=== PATIENT | female | born 1995 | race African-American/Black ===

== ENCOUNTER 2016-12-08 20:03 | Emergency (ER) | payer OTHER ==
[~2016-12-08] VITALS: Ht 157.5 cm; Wt 50.8 kg
[2016-12-08 20:51] LABS: BASO % 1 % (0-3); EOS % 1 % (0-3); HEMATOCRIT 41.6 % (36.0-47.0); HEMOGLOBIN 14.7 g/dL (12.0-15.5); LYMPH # 2.5 x10^3/uL (1.0-4.8); LYMPH % 43 % (24-48); MEAN CORPUSCULAR HEMOGLOBIN 31 pg (25-35); MEAN CORPUSCULAR HGB CONC 35 g/dL (31-37); MEAN CORPUSCULAR VOLUME 88 fL (79-100); MONO % 6 % (0-9); NEUT % 51 % (31-73); PLATELET COUNT 207 x10^3/uL (140-400); RED BLOOD COUNT 4.73 x10^6/uL (3.50-5.40); RED CELL DISTRIBUTION WIDTH 12.6 % (11.5-14.5); WHITE BLOOD COUNT 5.9 x10^3/uL (4.0-11.0)
[2016-12-08 21:05] LABS: CALCIUM 8.9 mg/dL (8.5-10.1); CREATININE 0.9 mg/dL (0.6-1.0); GFR 94.7; POTASSIUM 3.5 mmol/L (3.5-5.1)
[2016-12-08 21:08] LABS: NEG OBC SER NEG; POS OBC SER POS
[2016-12-08 21:11] LABS: ALBUMIN/GLOBULIN RATIO 1.1 (1.0-1.7); TOTAL BILIRUBIN 0.5 mg/dL (0.2-1.0); TOTAL PROTEIN 7.8 g/dL (6.4-8.2)
[2016-12-08] MEDS ORDERED: HYDROcodone/APAP 5/325MG 1 TAB TABLET PO ONE (22:00)
[2016-12-08] MEDS ORDERED: PROCHLORPERAZINE 5 MG TABLET. PO ONE (22:00)
[2016-12-08 22:40] VITALS: BP 120/72
--- NOTE | 2016-12-08 23:29 | ED.ADGEN ---
Past Medical History Past Medical History: Hypertension, Migraines Past Surgical History: No Surgical History Alcohol Use: None Drug Use: None Adult General Chief Complaint Chief Complaint: SYNCOPE HPI HPI Patient is a 21 year old -[place] female with history of chronic migraines who presents with simple episode while outdoors at a local park. Patient reports migraine headache earlier this evening, reports feeling dizzy and lightheaded and had brief syncopal episode while sitting at a park bench. This was followed by a second syncopal episode which lasted seconds. Nose seizure activity was witnessed, patient denies incontinence or having tongue or lips. Patient denies chest pain palpitations, her cardiac symptoms prior to syncope. Denies history of prior syncope. Patient states other than her typical migraine headache, symptoms have resolved. Patient is currently on control denies possibility of . Patient denies history of drug abuse. Strong odor of marijuana as noted in the room. Review of Systems Review of Systems Review symptoms as per history of present illness. All other review of symptoms are negative. Current Medications Current Medications Current Medications Medications (Trade) Dose Ordered Sig/Emma Start Time Stop Time Status Last Admin Dose Admin Acetaminophen/ Hydrocodone Bitart (Lortab 5/325) 1 tab 1X ONCE 12/08/16 22:00 12/08/16 22:01 DC 12/08/16 21:58 1 TAB Prochlorperazine Maleate (Compazine) 10 mg 1X ONCE 12/08/16 22:00 12/08/16 22:01 DC 12/08/16 21:56 10 MG Allergies Allergies Allergies Coded Allergies Type Severity Reaction Last Updated Verified No Known Drug Allergies 05/02/14 No Physical Exam Physical Exam Constitutional: Well developed, well nourished, no acute distress, non-toxic appearance. HENT: Normocephalic, atraumatic, bilateral external ears normal, oropharynx moist, no oral exudates, nose normal. Eyes: PERRLA, EOMI. Neck: Normal range of motion, supple, no midline tenderness. Cardiovascular:Heart rate regular rhythm, no murmur. Lungs & Thorax: Bilateral breath sounds clear to auscultation. Abdomen: Bowel sounds normal, soft, no tenderness. Skin: Warm, dry. Back: No tenderness, no CVA tenderness. Extremities: No midline tenderness. Neurologic: Alert and oriented X 3, normal motor function, normal sensory function, no focal deficits noted. Psychologic: Affect normal, judgement normal, mood normal. Current Patient Data Vital Signs Vital Signs Date Time Temp Pulse Resp B/P (MAP) Pulse Ox O2 Delivery O2 Flow Rate FiO2 12/08/16 22:40 66 120/72 (88) 99 Room Air 12/08/16 20:16 98.1 14 98.1 Lab Values Laboratory Tests Test 12/08/16 19:25 12/08/16 20:44 POC Urine HCG, Qualitative Hcg negative (Negative) White Blood Count 5.9 x10^3/uL (4.0-11.0) Red Blood Count 4.73 x10^6/uL (3.50-5.40) Hemoglobin 14.7 g/dL (12.0-15.5) Hematocrit 41.6 % (36.0-47.0) Mean Corpuscular Volume 88 fL (79-100) Mean Corpuscular Hemoglobin 31 pg (25-35) Mean Corpuscular Hemoglobin Concent 35 g/dL (31-37) Red Cell Distribution Width 12.6 % (11.5-14.5) Platelet Count 207 x10^3/uL (140-400) Neutrophils (%) (Auto) 51 % (31-73) Lymphocytes (%) (Auto) 43 % (24-48) Monocytes (%) (Auto) 6 % (0-9) Eosinophils (%) (Auto) 1 % (0-3) Basophils (%) (Auto) 1 % (0-3) Neutrophils # (Auto) 3.0 x10^3uL (1.8-7.7) Lymphocytes # (Auto) 2.5 x10^3/uL (1.0-4.8) Monocytes # (Auto) 0.3 x10^3/uL (0.0-1.1) Eosinophils # (Auto) 0.0 x10^3/uL (0.0-0.7) Basophils # (Auto) 0.0 x10^3/uL (0.0-0.2) Sodium Level 138 mmol/L (136-145) Potassium Level 3.5 mmol/L (3.5-5.1) Chloride Level 101 mmol/L (98-107) Carbon Dioxide Level 30 mmol/L (21-32) Anion Gap 7 (6-14) Blood Urea Nitrogen 6 mg/dL (7-20) L Creatinine 0.9 mg/dL (0.6-1.0) Estimated GFR (Cockcroft-Gault) 94.7 BUN/Creatinine Ratio 7 (6-20) Glucose Level 108 mg/dL (70-99) H Calcium Level 8.9 mg/dL (8.5-10.1) Total Bilirubin 0.5 mg/dL (0.2-1.0) Aspartate Amino Transferase (AST) 18 U/L (15-37) Alanine Aminotransferase (ALT) 22 U/L (14-59) Alkaline Phosphatase 55 U/L (46-116) Total Protein 7.8 g/dL (6.4-8.2) Albumin 4.0 g/dL (3.4-5.0) Albumin/Globulin Ratio 1.1 (1.0-1.7) Serum Test, Qualitative Negative (NEG) Laboratory Tests 12/08/16 20:44 Laboratory Tests 12/08/16 20:44 EKG EKG [EKG: Sinus arrhythmia, rate 72, no acute ST-T wave changes.] Radiology/Procedures Radiology/Procedures [] Impressions: Migraine headache with syncopal episode Course & Med Decision Making Course & Med Decision Making Pertinent Labs and Imaging studies reviewed. (See chart for details) [Headache without focal neurologic symptoms, symptoms resolved in the ED.] Dragon Disclaimer Dragon Disclaimer This electronic medical record was generated, in whole or in part, using a voice recognition dictation system. [place] THOMAS DO December 08, 2016 23:29
--- NOTE | 2016-12-09 11:46 | EKG ---
[facility] [address] [place] [address] Test Date: 2016-12-08 Test Time: 20:10:03 Pat Name: TRICIA NDIAYE Department: Room: Gender: F Human Resources Operations Director: : 1995 Requested By: [place] THOMAS Order Number: [id number] Reading MD: Lashae Flynn Measurements Intervals [place] Rate: 72 P: 66 W[place]: 220 QRS: 82 QRSD: 78 T: 59 QT: 368 QTc: 404 Interpretive Statements SINUS ARRHYTHMIA PROLONGED WY INTERVAL ABNORMAL ECG RI6.01 No previous ECG available for comparison Electronically Signed On 12-09-2016 18:19:30 CDT by Lashae Flynn
== END 2016-12-08 22:41 | disposition home or self-care (01) ==
LOC: ER 20:03
DX: G43.909 Migraine, unspecified, not intractable, without status migrainosus (principal); R55 Syncope and collapse; I10 Essential (primary) hypertension
CPT/HCPCS: 36415; 80053; 81025; 84703; 85027; 93005; 99285; Q0164

== ENCOUNTER 2019-12-06 08:26 | Observation (INO) | payer OTHER ==
[~2019-12-06] VITALS: Ht 157.5 cm; Wt 50.3 kg
[2019-12-06] MEDS ORDERED: IV RINGERS,LACTATED 1000ML 1,000 ML IV SCH (09:00)
[2019-12-06 09:08] LABS: BILIRUBIN,URINE NEGATIVE (NEG); CLARITY,URINE CLEAR; COLOR,URINE YELLOW; NITRITE,URINE NEGATIVE (NEG); PROTEIN,URINE NEGATIVE (NEG-TRACE); UROBILINOGEN,URINE 0.2 mg/dL (0.2 mg/dL)
[2019-12-06 09:19] LABS: SQUAMOUS EPITHELIAL CELL,UR MOD /LPF
[2019-12-06 09:20] LABS: BACTERIA,URINE FEW /HPF (0-FEW); RBC,URINE 0 /HPF (0-2)
[2019-12-06 10:02] LABS: BASO % 0 % (0-3); EOS # 0.1 x10^3/uL (0.0-0.7); EOS % 1 % (0-3); HEMATOCRIT 40.8 % (36.0-47.0); HEMOGLOBIN 13.6 g/dL (12.0-15.5); LYMPH % 17 % (24-48); MEAN CORPUSCULAR HEMOGLOBIN 32 pg (25-35); MEAN CORPUSCULAR HGB CONC 33 g/dL (31-37); MEAN CORPUSCULAR VOLUME 95 fL (79-100); MONO # 0.7 x10^3/uL (0.0-1.1); MONO % 6 % (0-9); NEUT # 9.2 x10^3/uL (1.8-7.7); NEUT % 77 % (31-73); PLATELET COUNT 200 x10^3/uL (140-400); RED BLOOD COUNT 4.31 x10^6/uL (3.50-5.40); RED CELL DISTRIBUTION WIDTH 13.2 % (11.5-14.5)
[2019-12-06] MEDS ORDERED: MAGNESIUM SULFATE 4GM 100 ML IV ONE (10:30)
[2019-12-06] MEDS ORDERED: MAGNESIUM SULFATE 2GM 50 ML IV ONE (10:30)
--- NOTE | 2019-12-06 11:12 | PDOC1 ---
OB - History Hx of Present Care: Good Care Ultrasounds: Normal mid trimester US Obstetrical Complications: None Medical Complications: None Past Family/Social History * Past Medical, Surgical, Family and Obstetric Histories reviewed from chart. Blood Type: O+ Rubella: Unknown RPR/VDRL: Unknown GBS Status: Unknown HBsAG: Unknown OB - Chief Complaint & HPI Date of Admission: Date of Admission: December 06, 2019 at 08:26 Chief Complaint/History : 3 Para: 2 EGA: 21 Reason for admission: labor (vaginal bleeding) Admission Nurse Assessment Rev: Yes OB - Admission Exam Physical Exam HEENT: Normal Heart: Regular Rate Lungs: Clear Abdomen: Gravid, Non tender, Soft Extremities: No tenderness or swelling Cervical Dilatation: 1cm Effacement: 75% Station: -3 Membranes: Intact Heart Rate: Normal Accelerations: Accelerations Present Decelerations: No decelerations Contractions on Admission: < 5 Minutes Apart Intensity: Moderate Text A: 21 wks IUP PTL P: Admit for transfer to . Give magnesium sulfate and celestone. MARLENY MERINO Jr, MD December 06, 2019 11:12
[2019-12-06] MEDS ORDERED: BETAMET ACET&NA PHOS 30 MG/5 ML VIAL. IM ONE (11:15)
[2019-12-06 11:21] LABS: ALBUMIN/GLOBULIN RATIO 0.9 (1.0-1.7); CALCIUM 8.4 mg/dL (8.5-10.1); CREATININE 0.6 mg/dL (0.6-1.0); GFR 147.4; POTASSIUM 3.5 mmol/L (3.5-5.1); TOTAL BILIRUBIN 0.3 mg/dL (0.2-1.0); TOTAL PROTEIN 6.5 g/dL (6.4-8.2)
--- NOTE | 2019-12-06 11:24 | RAD ---
EXAM: Ultrasound OB Greater than 14 weeks INDICATION: Vaginal bleeding. TECHNIQUE: Real-time obstetrical ultrasound was performed with permanent freeze-frame documentation. Transabdominal only ultrasound was performed. COMPARISON: None. FINDINGS: POSITION: Breech HEART RATE: 165 bpm KANNAN: 17.9 cm PLACENTA: Posterior. Not low-lying CERVICAL LENGTH: 2 cm. Some apparent funneling of the cervix is noted. MATERNAL UTERUS: Unremarkable. MATERNAL ADNEXA: Unremarkable. AGE/DATES: Gestational Age by LMP: 21 weeks 3 days Gestation Age by US: 21 weeks 6 days EDC by LMP: April 14, 2020 EDC by US: April 11, 2020 WEIGHT: 455 grams +/- 67 grams PERCENTILE WEIGHT: Not estimated BIOMETRIC PARAMETERS: BPD: 5.3 cm corresponding with 22 weeks 1 day HC: 19.1 cm corresponding with 21 weeks 2 days AC: 17.1 cm corresponding with 22 weeks 1 day FL: 3.7 cm corresponding with 21 weeks 4 days ANATOMY: CARDIAC: Normal four chamber heart. Normal right and left ventricular outflow tracts. UMBILICAL CORD: Normal 3 vessel cord. Cord insertion not well visualized this exam. BRAIN: Unremarkable. NOSE/LIPS: Not well seen. SPINE: Not assessed in detail. EXTREMITIES: Not assessed in detail. STOMACH: Unremarkable. KIDNEYS: Not assessed in detail BLADDER: Unremarkable. IMPRESSION: OB ultrasound demonstrating a single viable fetus in breech position with a 2 cm cervix showing some funneling. No oligohydramnios or evidence of placental previa or abruption. Estimated gestational age of 21 weeks 6 days and EDC of April 11, 2020. Electronically signed by: Salma Diallo MD (12/06/2019 11:21 AM) [id number]
[2019-12-06] MEDS ORDERED: BETAMET ACET&NA PHOS 30 MG/5 ML VIAL. IM SCH (11:30)
[2019-12-06] MEDS ORDERED: AMPICILLIN SODIUM 2 GM in IV NORMAL SALINE 100ML 100 ML IV ONE (12:00)
[2019-12-06] MEDS ORDERED: MAGNESIUM SULFATE 20GM 500 ML IV SCH (12:00)
== END 2019-12-06 12:15 | disposition short-term general hospital (02) ==
LOC: 3 SO LND 08:26
PROVIDERS: ADMIT Obstetrics & Gynecology; ATTEND Obstetrics & Gynecology
DX: O46.92 Antepartum hemorrhage, unspecified, second trimester (principal); Z3A.21 21 weeks gestation of pregnancy
CPT/HCPCS: 36415; 76805; 80053; 81001; 85025; 86850; 86900; 86901; 96365; 96368; 96372; G0378; G0379; J0290; J0702; J3475; J7120